=== PATIENT | male | born 2000 | race Caucasian/White ===

== ENCOUNTER 2024-12-09 13:22 | Emergency (ER) | payer OTHER, SELFPAY ==
[2024-12-09 13:25] VITALS: PULSE 68; O2SAT 98
[2024-12-09 13:28] VITALS: BP 142/97; PULSE 61; RESP 13; TEMP 36.7; O2SAT 97; O2SAT 98; BMI 32.3
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
[2024-12-09 13:41] LABS: Appearance Urine UA CLEAR; Bilirubin Urine UA NEGATIVE (NEGATIVE); Color Urine UA YELLOW; Glucose Urine UA NEGATIVE (Negative); Ketones Urine UA NEGATIVE (NEGATIVE); Leukocyte Esterase Urine UA NEGATIVE (NEGATIVE); Nitrite Urine UA NEGATIVE (Negative); Occult Blood Urine UA NEGATIVE (Negative); Protein Urine UA NEGATIVE (Negative); Urobilinogen Urine UA 0.2 E.U./dL (0.2); pH Urine UA 6.5 (4.5-8.0)
[2024-12-09 13:42] LABS: Urine Volume 10mL (spun)
[2024-12-09 13:46] LABS: Bacteria Urine None Seen; Culture Indicated Urine Cult Not Indicated; RBC Urine None Seen (0-5/HPF); Squamous Epithelial Cell Urine None Seen (0-5/HPF); WBC Urine None Seen (0-5/HPF)
[2024-12-09 13:47] LABS: UR Morphine/Opiate cutoff 300 Negative (Negative); Ur Creatinine Normal (Normal); Ur Specific Gravity Normal (Normal); Urine Amphetamines Negative (Negative); Urine Barbiturates Negative (Negative); Urine Benzodiazepines Negative (Negative); Urine Cocaine Negative (Negative); Urine MDMA Negative (Negative); Urine Methadone Negative (Negative); Urine Methamphetamines Negative (Negative); Urine Oxycodone Negative (Negative); Urine Phencyclidine Negative (Negative); Urine Tetrahydrocannabinol Negative (Negative); Urine Tricyclic Antidepressant Negative (Negative); Urine pH Normal (Normal)
--- NOTE | 2024-12-09 14:01 | EKG_ITS ---
[place] [id number] [place] [id number] Test Date: 2024-12-09 Pat Name: Josh Hernandez Department: [facility] Room: Gender: Male Rehab Physician: : 2000 Requested By: Order Number: [id number] Reading MD: Nato Aguila MD Measurements Intervals [place] Rate: 56 P: 28 ID: [id number] QRS: -8 QRSD: 98 T: 0 QT: 384 QTc: 370 Interpretive Statements Sinus bradycardia with sinus arrhythmia Minimal voltage criteria for LVH, may be normal variant ( R in aVL ) Electronically Signed On 12-09-2024 17:13:15 PDT by Nato Aguila MD
[2024-12-09 14:12] LABS: Add Manual Diff / Slide Review NO; Basophils Absolute Auto 0 /uL (0-100); Basophils Percent Auto 0.5 % (0-2); Eosinophils Absolute Auto 100 /uL (0-450); Eosinophils Percent Auto 0.7 % (2-4); Hematocrit 40.9 % (41-53); Hemoglobin 14.1 g/dL (13.5-17.5); Lymphocytes Absolute Auto 1600 /uL (1100-4500); Lymphocytes Percent Auto 19.6 % (25-40); Mean Corpuscular HGB Conc 34.5 % (30-36); Mean Corpuscular Hemoglobin 29.8 PG (26-34); Mean Corpuscular Volume 86.5 fL (80-100); Monocytes Absolute Auto 400 /uL (0-900); Monocytes Percent Auto 4.6 % (3-14); Neutrophils Absolute Auto 6000 /uL (1500-7000); Neutrophils Percent Auto 74.6 % (50-75); Platelet Count 291 X10^3/uL (150-400); Red Blood Cell Count 4.73 X10^6/uL (4.5-5.9); Red Cell Distribution Width 12.6 % (11.6-14.8)
[2024-12-09 14:28] LABS: Acetaminophen < 10 ug/mL (10-30); Alanine Aminotransferase 30 IU/L (<50); Albumin 4.5 g/dL (3.5-5.0); Albumin Globulin Ratio 1.3 (1.0-2.8); Alkaline Phosphatase 113 U/L (38-126); Aspartate Aminotransferase 25 IU/L (17-59); BUN Creatinine Ratio 16.5 (6-22); Bilirubin Total 0.7 mg/dL (0.2-1.3); Blood Urea Nitrogen 16 mg/dL (9-20); Calcium 9.6 mg/dL (8.4-10.2); Carbon Dioxide 24 mmol/L (22-32); Chloride 105 mmol/L (98-107); Estimated Glomerular Filt Rate > 60 mL/min (>60); Ethanol (ETOH) < 10 mg/dL; Globulin 3.5 g/dL (1.7-4.1); Glucose 94 mg/dL (70-99); HEMOLYSIS < 15 (0-50); Potassium 4.2 mmol/L (3.4-5.1); Salicylate < 1.0 mg/dL (<20); Sodium 139 mmol/L (137-145)
[2024-12-09 14:58] LABS: TSH w/ Reflex to FT4 1.57 uIU/mL (0.47-4.68)
[2024-12-09 17:10] VITALS: BP 133/75; PULSE 57; O2SAT 98
[2024-12-09 17:34] VITALS: BP 131/85; PULSE 60; TEMP 36.8; O2SAT 98
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
== END 2024-12-09 17:34 | disposition home or self-care (01) ==
PROVIDERS: Emergency Provider Emergency Medicine
DX: R45.851 Suicidal ideations (principal)
CPT/HCPCS: 36415; 80053; 80305; 80320; 80329; 81001; 84443; 85025; 93005; 99283; 99284; G0480

== ENCOUNTER 2025-01-03 06:30 | Day surgery (SDC) | payer OTHER, SELFPAY ==
[2024-12-29 14:20] VITALS: BMI 33.7
[2025-01-03] VITALS (7 sets, daily range): BP systolic 110–129; BP diastolic 70–80; PULSE 59–78; RESP 11–17; TEMP 36.1–36.7; O2SAT 95–99; BMI 33.4
[2025-01-03] MEDS: LACTATED RINGERS 1,000 ML 42 ML IV (06:58)
--- NOTE | 2025-01-03 07:22 | PM.PREOP ---
Pre-operative Note Interval Note History & Physical reviewed/Exam performed by Physician: Yes Changes to H&P: No
[2025-01-03] MEDS: CEFAZOLIN 2 GM/100 ML PREMIX 100 ML IV (07:36)
--- NOTE | 2025-01-03 08:06 | SUR.OPER ---
Supine on padded OR bed, head on pillow, non operative arm secured on padded arm boards at <90 degrees abduction, operative arm on padded OR wide board, legs uncrossed, safety belt at thigh, tape over blanket over lower legs.
[2025-01-03] MEDS: BUPIVACAINE 0.25% (PF) VIAL 30 ML INJ (08:12)
--- NOTE | 2025-01-03 08:37 | P.OP_ITS ---
Operative Date/Time/Diagnoses Date of procedure: 01/03/25 Time of procedure: 08:37 Pre-op diagnosis: LEFT Small Finger Proximal Phalanx Fracture Post-op diagnosis: same Procedure & Clinicians Procedure: CRPP of the LEFT Small Finger Proximal Phalanx Fracture Same procedure as scheduled: Yes Surgeon: Antony Beatty Click Yes if Unassisted: Yes Anesthesia Type: General Operative Notes Findings: Stable length fracture however able to improve the rotation of the finger Estimated Blood Loss (mL): 3 Procedure in detail: Laterality: Left Preoperative diagnosis: Small Finger proximal Phalanx Fracture Procedure performed: CRPP of the Finger Fracture Postoperative diagnosis: Same Primary Surgeon: Antony Beatty MD Secondary Surgeon: None Anesthesia: General EBL: 3 ml Tourniquet: 0 minutes @ 250 mmHg Implants: 0.045 K wires x 3 Indication For Surgery: 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 The finger would rotate externally. He was indicated for CRPP in order for improvement in his malrotation.. The risks, benefits, and alternatives were discussed. Risks include pain, bleeding, infection, damage to nearby structures and cartilage, lack of symptom relief, need for further surgery, DVT, PE, stroke, and . Written consent was obtained. Operative Findings: There was minimal movement on traction. The finger was manipulated until we were able to free up the healing process. Unable to improve his length greatly however his malrotation was improved. Procedure in Detail: The patient was met in the pre-operative hold area. Consent was verified and operative extremity was signed. The patient then met with anesthesia and was brought back to the operating room. The patient was placed supine on the operating table. Anesthetic was administered. The extremity was then prepped and draped in the usual sterile fashion. A timeout was performed per protocol. All were in agreement and we proceeded. The finger fracture was examined under flouroscopy. Initially there was no movement at the fracture site. The finger was manipulated with flexion, extension and rotation in order to free up the the 2 fracture fragments. Crepit us was felt indicating that there was motion at the fracture site. It was difficult to improve the length of the fracture however we were able to improve his malrotation. The reduction was assessed with an AP and lateral radiograph. The hand was taken through passive range of motion to evaluate the direction of the finger. It was in good alignment with the rest of the hand. Three K-wires were then placed to hold the reduction. The reduction and hardware was examined under AP and Lateral fluoroscopic views. The pins were then bent and Jergan balls were placed. Local anesthetic was injected. Placed in a sterile dressing and short arm ulnar gutter splint. Postoperative Plan: Discharge to home Strict Elevation Keep splint in place until follow up Non weight bearing of the operative extremity FU with ortho in 2 weeks Antony Beatty MD Complications: none Post-operative Condition: stable Disposition: PACU
--- NOTE | 2025-01-03 08:40 | SUR.PHASEI ---
Patient reported 4/10 pain to the left 5th finger, declined pain medication. Patient able to move all fingers, but only minimal movement to the 5th finger. Dull/numb sensation to the 5th finger.
[2025-01-03] MEDS: ACETAMINOPHEN 325 MG TABLET 650 MG PO (08:47)
[2025-01-03] MEDS: OXYCODONE IR 5 MG TABLET PO (08:47)
== END 2025-01-03 09:18 | disposition home or self-care (01) ==
PROVIDERS: Referring Provider Orthopaedic Surgery; Visit Provider Orthopaedic Surgery
PROC: (CPT 26727; principal; 2025-01-03 07:45)
DX: S62.617A Displaced fracture of proximal phalanx of left little finger, initial encounter for closed fracture (principal); W20.8XXA Other cause of strike by thrown, projected or falling object, initial encounter; Z87.891 Personal history of nicotine dependence
CPT/HCPCS: 26727; C1713; J0690; J1100; J2250; J2405; J2704; J3010; J3490

== ENCOUNTER 2025-07-23 14:32 | Emergency (ER) | payer OTHER, SELFPAY ==
[2025-07-23 14:44] VITALS: BP 127/80; PULSE 77; RESP 16; TEMP 36.6; O2SAT 98; BMI 35.5
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
[2025-07-23 17:11] VITALS: BP 125/64; PULSE 72; RESP 16; TEMP 37; O2SAT 99
== END 2025-07-23 17:11 | disposition home or self-care (01) ==
PROVIDERS: Emergency Provider Family Medicine
DX: M25.519 Pain in unspecified shoulder (principal); M54.9 Dorsalgia, unspecified; V43.52XA Car driver injured in collision with other type car in traffic accident, initial encounter
CPT/HCPCS: 71046; 99281; 99283